=== PATIENT | female | born 1995 | race Two or more races ===

== ENCOUNTER 2022-07-22 17:00 | Emergency (ER) | payer OTHER ==
[~2022-07-22] VITALS: Ht 154.9 cm; Wt 80.7 kg
[2022-07-22] MEDS ORDERED: SINGULAIR4 MG PO (18:59)
[2022-07-22] MEDS ORDERED: BACTRIM DS TAB1 EACH PO (21:14)
== END 2022-07-22 21:20 | disposition home or self-care (01) ==
LOC: ER 17:00
DX: N39.0 Urinary tract infection, site not specified (principal); M54.9 Dorsalgia, unspecified